=== PATIENT | female | born 1940 | race African-American/Black ===

== ENCOUNTER 2019-09-23 15:45 | Inpatient (IN) | payer OTHER ==
[~2019-09-23] VITALS: Ht 165.1 cm; Wt 75.3 kg
--- NOTE | 2019-09-23 16:12 | NUR ---
PT IS IN ROOM #2A. DR GUTHRIE EVALUATED THE PT.
[2019-09-23 16:14] LABS: BASOPHILS % (AUTO) 0.6 % (0.0-2.0); EOSINOPHILS # (AUTO) 0.2 K/uL (0.0-0.7); EOSINOPHILS % (AUTO) 2.8 % (0.0-7.0); HEMOGLOBIN 13.3 g/dL (10.9-14.3); LYMPHOCYTES # (AUTO) 3.1 K/uL (20.0-40.0); LYMPHOCYTES % (AUTO) 50.4 % (20.5-51.5); MEAN CORPUSCULAR HEMOGLOBIN 28.6 uug (24.7-32.8); MEAN CORPUSCULAR HGB CONC 33 g/dL (32.3-35.6); MEAN CORPUSCULAR VOLUME 88.1 fL (75.5-95.3); MONOCYTES # (AUTO) 0.5 K/uL (2.0-10.0); MONOCYTES % (AUTO) 7.7 % (0.0-11.0); NEUTROPHILS # (AUTO) 2.3 K/uL (1.8-8.9); NEUTROPHILS % (AUTO) 38.5 % (38.5-71.5); PLATELET COUNT (AUTO) 169 K/uL (179-408); RED BLOOD CELL COUNT(AUTO) 4.65 MIL/uL (3.63-4.92); WHITE BLOOD COUNT (AUTO) 6.1 K/uL (3.8-11.8)
[2019-09-23 16:20] LABS: CARBON DIOXIDE 30 mmol/L (21-32); CHLORIDE 107 mmol/L (98-107); GLUCOSE 96 mg/dL (74-106); POTASSIUM 4.5 mmol/L (3.5-5.1); UREA NITROGEN, BLOOD 28 mg/dL (7-18)
[2019-09-23] MEDS ORDERED: MELA3TAB41 PO (16:20)
[2019-09-23] MEDS ORDERED: SENN-261 PO (16:20)
[2019-09-23] MEDS ORDERED: ACET-2154 PO (16:20)
[2019-09-23] MEDS ORDERED: QUET25TA PO (16:20)
[2019-09-23] MEDS ORDERED: DOCU100C36 PO (16:20)
[2019-09-23] MEDS ORDERED: METO25TA6 PO (16:20)
[2019-09-23 16:25] LABS: ALANINE AMINOTRANSFERASE 20 U/L (14-59); ALKALINE PHOSPHATASE 111 U/L (50-136); ASPARTATE AMINOTRANSFERASE 17 U/L (15-37); BILIRUBIN,DIRECT 0.1 mg/dL (0.0-0.2); BILIRUBIN,TOTAL 0.3 mg/dL (0.2-1.0); TOTAL PROTEIN, SERUM 7.1 g/dL (6.4-8.2)
[2019-09-23 16:26] LABS: *BILIRUBIN,URIN NEGATIVE (NEGATIVE); *CLARITY,URINE CLEAR (CLEAR); *COLOR,URINE YELLOW (YELLOW); *KETONES,URINE NEGATIVE (NEGATIVE); *UROBILINOGEN,URINE 0.2 E.U./dl (NORMAL); LEUKOCYTE ESTERASE ,URINE NEGATIVE (NEGATIVE); NITRITE, URINE NEGATIVE (NEGATIVE); UGLUCOSE NEGATIVE (NEGATIVE)
[2019-09-23 16:31] LABS: *BLOOD, URINE TRACE (NEGATIVE)
[2019-09-23 16:31] LABS: ACETAMINOPHEN < 2.0 ug/mL (10-30); ETHANOL < 3 MG/DL (0-0)
[2019-09-23 16:37] LABS: BAND % (MANUAL) 4 % (0-10); EOSINOPHILS % (MANUAL) 3 % (0-8); LYMPHOCYTES % (MANUAL) 47 % (20-40); METAMYELOCYTES % 1 % (0-1); MONOCYTES % (MANUAL) 2 % (2-10); NEUTROPHILS % (MANUAL) 39 % (42-75)
[2019-09-23 16:38] LABS: BACTERIA,URINE NONE SEEN /HPF (NONE SEEN); SQUAMOUS EPITHELIAL CELL,UR FEW /HPF (NONE SEEN); WBC,URINE 0-3 /HPF (0-3)
[2019-09-23 16:40] LABS: *AMPHETAMINE, URINE NEGATIVE (NEGATIVE); *BARBITURATE, URINE NEGATIVE (NEGATIVE); *CANNABINOID, URINE NEGATIVE (NEGATIVE); *COCCAINE, URINE NEGATIVE (NEGATIVE); *OPIATE, URINE NEGATIVE (NEGATIVE); *PHENCYCLIDINE SCREEN,URINE NEGATIVE (NEGATIVE)
--- NOTE | 2019-09-23 16:43 | NUR ---
CRISIS GAS PROCESSING PLANT OPERATOR ROYA WAS CALLED TO EVALUATE THE PT. CHAN IS 30 MINUTES.
[2019-09-23] MEDS ORDERED: ZOLPIDEM 5 MG TABLET PO PRN (17:30)
[2019-09-23] MEDS ORDERED: LORAZEPAM 1 MG TABLET PO PRN (17:30)
[2019-09-23] MEDS ORDERED: MAG HYDROX/AL HYDROX/SIMETH 30 ML LIQUID UDC PO PRN (17:30)
[2019-09-23] MEDS ORDERED: ACETAMINOPHEN 325 MG TABLET PO PRN ×2 (17:30→22:15)
--- NOTE | 2019-09-23 18:17 | NUR ---
CRISIS EDUCATION AND TRAINING COORDINATOR ART EVALUATED THE PT. PT WAS PLACED ON HOLD GRAVELY DISABLED. REPORT WAS GIVEN TO RN MHU. PT WAS TRANSFERED TO ROOM #141B MHU.
[2019-09-23 18:30] VITALS: BP 128/67
--- NOTE | 2019-09-23 18:32 | NUR ---
GPS: Nursing Notes: Admitting Notes: Patient admitted to MHU on 5150 GD due to non-compliant with care, aggressive and agitated behavior, impaired judgment, poor insight, poor impulse control, on face to face assessment, patient is A/Ox2-3, disoriented to situation, believes that she has been kidnap, loud and pressured speech, angry affect, paranoid behavior, stated "I am not going to take any medication here... I am leaving.... I am not going to sleep here..", resistant to nursing care, unable to formulate a viable plan for self care, oriented to the unit and admitting package given to the patient, Dr. Prasad and Dr. Marte were notify by charge nurse, continue to monitor the patient for safety.
--- NOTE | 2019-09-23 20:00 | NUR ---
RECEIVED PATIENT IN HER ROOM SITTING IN HER BED. SHE IS NOTED A/O X 2. ABLE TO AMBULATE WITH STEADY GAIT. PATIENT NOTED HOSTILE, EASILY IRRITABLE. AFFECT IS ANGRY, MOOD IS ANXIOUS. POOR INSIGHT AND JUDGMENT IS NOTED TO THE REASON FOR HER ADMISSION TO MHU. PATIENT STATED, "I NEED TO LEAVE NOW, MY DOCTOR SAID THAT I CAN GO." "I DON'T NEED TO BE HERE." PATIENT NOTED HARD TO REDIRECT. PATIENT IS REASSURED FOR HER SAFETY, SAFETY AND FALL PRECAUTION IN PLACE. PT IS REASSURED FOR HER SAFETY. WILL CONTINUE TO MONITOR.
[2019-09-23] MEDS ORDERED: MAGNESIUM HYDROXIDE 30 ML LIQUID UDC PO PRN (22:00)
[2019-09-24 07:25] LABS: BILIRUBIN,TOTAL 0.7 mg/dL (0.2-1.0); CREATININE 0.9 mg/dL (0.6-1.3); POTASSIUM 4.5 mmol/L (3.5-5.1); TOTAL PROTEIN, SERUM 7.1 g/dL (6.4-8.2)
[2019-09-24 07:30] VITALS: BP 135/53
[2019-09-24] MEDS: METOPROLOL TARTRATE 25 MG TABLET PO SCH ×2 (08:27→16:47)
[2019-09-24] MEDS: DOCUSATE SODIUM 100 MG CAPSULE PO SCH ×2 (08:27→08:31)
--- NOTE | 2019-09-24 08:32 | NUR ---
Patient urinated self and refused diaper. Patient did however change cloths and is sitting in the day room. Am medication offered and patient refused stating " I do not need to take any medications.". Dr. Prasad aware. Patient is confused and does not know that they are in a hospital. Reorientation given as needed. Am dose of Lopressor held d/t patients pulse is 53 bpm. Continuing to monitor patient for safety and any behavioral issues. Will encourage medication compliance with education. No acute distress noted at this time.
[2019-09-24] MEDS: QUETIAPINE FUMARATE 25 MG TABLET PO SCH ×4 (08:57→21:04)
--- NOTE | 2019-09-24 09:42 | NUR ---
Social Work Coordination of Care: ARASH left a voicemail for Nitza admin coordinator at [facility] to confirm patient's return when ready for discharge.
--- NOTE | 2019-09-24 09:45 | NUR ---
Social Work Family Contact: This television writer contacted patient's son Gavin ([phone]) but was unable to reach. This television writer left a voicemail to call back soon.
--- NOTE | 2019-09-24 09:45 | NUR ---
Social Work Initial Discharge Plan: Patient currently resides at [address] [address]; ([phone]). This sign writer hand contacted patient's son Gavin ([phone]) but was unable to reach. This sign writer hand contacted [facility] admin coordinator ([phone]) and left a voicemail. liner worker will work with the patient and the MD regarding appropriate discharge planning. liner worker will form a safe and proper discharge.
--- NOTE | 2019-09-24 09:48 | NUR ---
Social Work UR Note: ARASH spoke with CODY from [facility] ([phone]) who stated that Juan from [facility] ([phone]) will be the pillowcase maker and will provide with authorization # soon. patient's face sheet and hold has already been faxed.
--- NOTE | 2019-09-24 10:03 | NUR ---
Social Work UR Note: ARASH spoke with Ralph case coordinator from [facility] ([phone]) and stated that the psychiatrist will be seeing the patient today and will fax medication list and history and physical tomorrow.
--- NOTE | 2019-09-24 14:47 | NUR ---
Social Work Individual Therapy: No group is being held due to COVID-19 virus precautions. farm forestry and garden workers met with patient to discuss topic Identifying a support system. Patient presenting problem is neglecting self-care. Patient presents with impaired attention and unable to engage in a meaningful conversation. farm forestry and garden workers attempted to provide supportive counseling. Patient is unable to participate.
[2019-09-24 16:00] VITALS: BP 134/53
[2019-09-24] MEDS: METFORMIN HCL 500 MG TABLET PO SCH (16:46)
[2019-09-24] MEDS ORDERED: MELATONIN 3 MG TABLET PO SCH (18:00)
[2019-09-24] MEDS: SENNOSIDES 1 TABLET PO SCH (21:00)
[2019-09-25] MEDS: METFORMIN HCL 500 MG TABLET PO SCH ×2 (08:00→17:14)
[2019-09-25 09:06] VITALS: BP 148/61
[2019-09-25] MEDS: DOCUSATE SODIUM 100 MG CAPSULE PO SCH (09:15)
[2019-09-25] MEDS: QUETIAPINE FUMARATE 25 MG TABLET PO SCH ×3 (09:16→20:09)
[2019-09-25] MEDS: METOPROLOL TARTRATE 25 MG TABLET PO SCH ×2 (09:17→17:14)
--- NOTE | 2019-09-25 10:14 | NUR ---
Social Work UR Note: ARASH spoke with Ralph case assembler from [facility] ([phone]) and faxed history an physical, medication list and labs, and consultation. Awaiting for authorization number. Addendum: 09/25/19 at 1405 by ELI WOODWARD Authorization # [id number]
--- NOTE | 2019-09-25 14:23 | NUR ---
Social Work Individual Therapy: No group is being held due to COVID-19 virus precautions. adoption worker met with patient to discuss topic Setting Boundaries. Patient presenting problem is neglecting self-care. Patient presents with impaired attention and tracking, confused and disoriented, and unable to engage in a meaningful conversation. adoption worker provided active listening, and explored patient's feelings and thoughts. Patient is able to listen and share minimal ideas, however patient attention is impaired and is unable to focus on one topic. Patient is non-sensical and jumps from one idea to another.
--- NOTE | 2019-09-25 14:54 | NUR ---
Social Work Firearms Report ([employer]): Software Engineer Advisor completed and submitted a [employer] firearms report for [address] disability certification. A copy of report has been placed in patient chart.
[2019-09-25 16:55] VITALS: BP 118/67
[2019-09-25] MEDS: SENNOSIDES 1 TABLET PO SCH (20:09)
[2019-09-25 20:24] VITALS: BP 144/68
--- NOTE | 2019-09-26 08:09 | NUR ---
Social Work Discharge Note: Patient will be discharged back to [address] [address] ([phone]). Patient will be provided transportation via ambulance at 2:30PM. Spoke with Nitza Admin Coordinator at the facility who states they are ready to accept the patient back today. Patient is alert and oriented x2-3, denies suicidal or homicidal ideation, and is aware and agreeable with discharge plans. Patient presents with withdrawn mood and congruent affect. Patient is unable to provide for self-care at this time, however, is willing to continue to accept care at the facility. Patients daughter, Teresa Valderrama ([phone]) is made aware and agreeable with discharge plans. Patient will follow-up at the facility with her primary care physician Dr. Geller and psychiatrist Dr. Reich.
[2019-09-26 08:28] VITALS: BP 147/69
[2019-09-26] MEDS: METFORMIN HCL 500 MG TABLET PO SCH (08:28)
[2019-09-26] MEDS: METOPROLOL TARTRATE 25 MG TABLET PO SCH (08:28)
[2019-09-26] MEDS: DOCUSATE SODIUM 100 MG CAPSULE PO SCH (08:29)
[2019-09-26] MEDS: QUETIAPINE FUMARATE 25 MG TABLET PO SCH (08:29)
--- NOTE | 2019-09-26 11:37 | NUR ---
Social Work UR Note: ARASH spoke with Ralph supportive employment case manager from [place] ([phone]) and faxed discharge summary. Authorization # [id number]
--- NOTE | 2019-09-26 14:00 | NUR ---
1000 Called [facility] spoke with Liya informed regarding patient discharged back their facility. JOSE Green informed about medications to continue upon discharged- staff verbalized understanding. !400 Discharged patient to SNF via private transportation stable . Patient denies SI/HI. No delusion. No hallucination noted.
== END 2019-09-26 14:00 | DRG 885 ==
LOC: ER 15:45 → GPS 17:25
PROVIDERS: ADMIT Psychiatry & Neurology Psychiatry; ATTEND Registered Nurse
DX: F29 Unspecified psychosis not due to a substance or known physiological condition (principal); F03.91 Unspecified dementia, unspecified severity, with behavioral disturbance; R79.89 Other specified abnormal findings of blood chemistry; E11.9 Type 2 diabetes mellitus without complications; E66.9 Obesity, unspecified; I10 Essential (primary) hypertension; K59.00 Constipation, unspecified; Z87.440 Personal history of urinary (tract) infections; Z91.81 History of falling; Z68.27 Body mass index [BMI] 27.0-27.9, adult; Z79.899 Other long term (current) drug therapy; Z79.84 Long term (current) use of oral hypoglycemic drugs
CPT/HCPCS: 36415; 70030-TC; 80307; 80329; 85025; 93005; G0480; G0480-TC